=== PATIENT | female | born 1990 | race Two or more races ===

== ENCOUNTER 2022-06-30 17:26 | Emergency (ER) | payer OTHER ==
[~2022-06-30] VITALS: Ht 160 cm; Wt 91.0 kg
[2022-06-30 17:57] VITALS: BP 102/64
[2022-06-30] MEDS ORDERED: ACET-1158 PO (20:48)
== END 2022-06-30 20:56 | disposition home or self-care (01) ==
LOC: ER 17:26 → EDBD 17:26 → ER 20:56
DX: S16.1XXA Strain of muscle, fascia and tendon at neck level, initial encounter (principal); S00.03XA Contusion of scalp, initial encounter; Z3A.11 11 weeks gestation of pregnancy; V43.52XA Car driver injured in collision with other type car in traffic accident, initial encounter; Y93.89 Activity, other specified; Y92.89 Other specified places as the place of occurrence of the external cause; Y99.8 Other external cause status
CPT/HCPCS: 36415; 76801; 84702